=== PATIENT | male | born 1985 | race Caucasian/White ===

== ENCOUNTER 2022-07-17 15:04 | Emergency (ER) | payer SELFPAY ==
[~2022-07-17] VITALS: Ht 147 cm; Wt 72.5 kg
[2022-07-17] MEDS ORDERED: fentaNYL INJ 100 MCG/2 ML AMP IVP ONE ×2 (15:30→16:15)
[2022-07-17] MEDS ORDERED: proPOfol 200 MG/20 ML (DIPRIVAN) VIAL IV ONE (15:30)
[2022-07-17] MEDS ORDERED: NS IV 1000 ML 1,000 ML ONE (15:33)
--- NOTE | 2022-07-17 15:33 | ED Upper Extremity ---
General Chief Complaint: Upper Extremity Stated Complaint: R SHOULDER PAIN Nursing Triage Note: PT AMBULATORY TO ER WITH SON. PT INJURED R SHOULDER WHILE MOVING A FURNACE WHILE UP ON A LADDER, REPORTS FELT R SHOULDER POP, PAIN AT REST AND WITH MOVEMENT. Source: patient Exam Limitations: no limitations History of Present Illness Date Seen by Provider: Jul 17, 2022 Time Seen by Provider: 15:20 Initial Comments Patient is a 36-year-old male who presents to the emergency department today with a chief complaint of right shoulder pain. Patient was moving a furnace wh ile standing at the top of an 8 foot ladder when he lost his balance and fell off the ladder. [place] and heard a loud pop. He did not hit his head or have loss of consciousness. He states right now his shoulder hurts so bad he cannot identify any other sources of pain. He states that his right hand feels "cold". He is able to move his elbow, wrist and fingers. No chronic medical conditions. He last ate breakfast this morning, no lunch. Was ambulatory into the department. Has had previous labrum tear repair on the right shoulder and a previous chainsaw injury to the left shoulder. Denies history of christian dislocations of this shoulder. Currently rating his pain "10 out of 10". All other review of systems reviewed and negative except as stated. Onset: just prior to arrival Severity: severe Pain/Injury Location: right shoulder Method of Injury: fell Modifying Factors: Improves With Immobilization; Worse With Movement Allergies and Home Medications Allergies Coded Allergies: ketamine (Verified Allergy, Unknown, 07/17/22) ketorolac (Verified Allergy, Unknown, 07/17/22) morphine (Verified Allergy, Unknown, 07/17/22) Patient Home Medication List Home Medication List Reviewed: Yes Hydrocodone/Acetaminophen (Hydrocodone-Acetamin 5-325 mg) 5 Mg-325 Mg Tablet, 1 TAB PO Q6H PRN for PAIN-MODERATE (5-7) Prescribed by: MARYA RAO on 07/17/22 0033 Review of Systems Constitutional: see HPI EENTM: no symptoms reported Respiratory: no symptoms reported Cardiovascular: no symptoms reported Gastrointestinal: no symptoms reported Genitourinary: no symptoms reported Musculoskeletal: joint pain (right shoulder) All Other Systems Reviewed Negative Unless Noted: Yes Past Tujfocp-Qoushb-Vtplfj Hx Patient Social History Tobacco Use?: No Use of E-Cig and/or Vaping dev: No Substance use?: Yes Substance type: Marijuana Alcohol Use?: No Immunizations Up To Date First/Initial COVID19 Vaccinat: RECEIVED, UNK WHEN COVID19 Vaccine [employer] Manager: UNK Physical Exam Vital Signs Vital Signs - First Documented 07/17/22 15:08 Temp 36.8 Pulse 88 Resp 18 B/P (MAP) 157/80 (105) Pulse Ox 97 O2 Delivery Room Air Capillary Refill : Height, Weight, BMI Height: '" Weight: lbs. oz. kg; 33.00 BMI Method: General Appearance: WD/WN, moderate distress Neck: normal inspection Cardiovascular: regular rate, rhythm Respiratory: lungs clear, normal breath sounds, no respiratory distress, no accessory muscle use Back: normal inspection Shoulder: No normal ROM; asymmetry, deformity, limited ROM, pain, soft tissue tenderness Elbow/Forearm: normal inspection, non-tender, no evidence of injury, normal ROM, Right Wrist: Yes normal inspection, Yes non-tender, Yes no evidence of injury, Yes normal ROM Hand: normal inspection, non-tender, no evidence of injury, normal ROM, Right Neurologic/Tendon: normal sensation, normal motor functions Neurologic/Psychiatric: no motor/sensory deficits, alert, normal mood/affect, oriented x 3 Skin: normal color, warm/dry, other (large cavitary scar over anterior left shoulder) Procedures/Interventions Patient Education: Explained Benefits, Explained Risks, Pt. Ack. Understanding Agreement on procedure with pt: Yes Breath Sounds per Auscultation: Clear Heart Sounds per Auscultation: Regular Airway Exam: Mouth opens >2 fingers, Neck Full Range of Motion, Visulation of Uvula Sedation Adminstration Time: 15:45 Total Time spent in CS 11 min Re-examination Time: 16:00 Re-examination persistent dislocation Splinting and Joint Reduction : Pre-Proc Neuro Vasc Exam: normal Post-Proc Neuro Vasc Exam: normal Joint Reduction Site: shoulder (R) Reduction Attempts: 1 Pre-Procedure NV Exam: Yes post joint reduction film: joint not reduced Progress re-sedation required and second attempt at reduction was successful; etomidate at 1619, total length of sedation on second attempt 10 min Arm Sling: Large Immobilizers: Large Shoulder Progress/Results/Core Measures Results/Orders My Orders Orders - MARYA RAO MD Ed Iv/Invasive Line Start (07/17/22 15:23) Shoulder, Right, 3 Views (07/17/22 15:23) Propofol Injection (Diprivan Injection) (07/17/22 15:30) Fentanyl Inj (Sublimaze Injection) (07/17/22 15:30) Ns Iv 1000 Ml (Sodium Chloride 0.9%) (07/17/22 15:45) Ns Iv 1000 Ml (Sodium Chloride 0.9%) (07/17/22 15:33) Shoulder, Right, 2 Views (07/17/22 15:54) Etomidate Injection (Amidate Injection) (07/17/22 16:15) Fentanyl Inj (Sublimaze Injection) (07/17/22 16:15) Shoulder, Right, 1 View (07/17/22 16:30) Hydrocodone/Apap 10/325 Tablet (Lortab 1 (07/17/22 16:45) Medications Given in ED Current Medications Medications Dose Ordered Sig/Rick Route Start Time Stop Time Status Last Admin Dose Admin Acetaminophen/ Hydrocodone Bitart 1 ea ONCE ONCE PO 07/17/22 16:45 07/17/22 16:46 DC 07/17/22 16:48 1 EA Etomidate 22 mg ONCE ONCE IV 07/17/22 16:15 07/17/22 16:16 DC 07/17/22 16:22 22 MG Fentanyl Citrate 50 mcg ONCE ONCE IVP 07/17/22 16:15 07/17/22 16:16 DC 07/17/22 16:10 50 MCG Fentanyl Citrate 100 mcg ONCE ONCE IVP 07/17/22 15:30 07/17/22 15:31 DC 07/17/22 15:37 100 MCG Propofol 200 mg ONCE ONCE IV 07/17/22 15:30 07/17/22 15:31 DC 07/17/22 15:45 180 MG Vital Signs/I&O 07/17/22 07/17/22 15:08 15:45 Temp 36.8 Pulse 88 Resp 18 B/P (MAP) 157/80 (105) Pulse Ox 97 O2 Delivery Room Air Room Air Blood Pressure Mean: 105 Progress Progress Note : Time: 16:32 Progress Note Patient was initially sedated with [id number] and traction/counter traction to right shoulder applied. Patient seemed to have good ROM after procedure. Placed in sling and post reduction films obtained. It appeared the joint wasn't fully reduced therefore etomidate ordered at 0.3mg/kg. After administration - with comtinuous EKG monitoring/ supplemental O2 and ETCO2, again tractio n/counter traction applied. No discrete reduction palpated. I asked for some assistance from Dr Carrillo to see if he felt the joint was reduced. he thought it was - and we obtained another post reduction film. It seems to be more seated in the glenoid - the entire time we waited for repeat xrays the patient was attempting to pull the right shoulder forward, Dr Carrillo held some manual pressure over the anterior shoulder to prevent the joint from re- dislocating. Sling replaced. Patient remains NVI. asking for pain meds. Patient has never been to the this facility before. Could not access [employer]. Offered oral pain meds. will refer to Ortho. Diagnostic Imaging Diagonstic Imaging: Xray [facility] [place] [place] NAME: KAREN BELL MED REC#: [id number] PT STATUS: REG ER : 1985 PHYSICIAN: MARYA RAO MD ADMIT DATE: 07/17/22/ER Draft Date of Exam:07/17/22 SHOULDER, RIGHT, 3 VIEWS INDICATION: Shoulder pain status post traumatic injury. COMPARISON: None. FINDINGS: Multiple radiographic views of the right shoulder were obtained and show anterior inferior dislocation of the humerus in respect to the glenoid. Osseous structures appear to be intact. AC joint is maintained. Included portions of the right hemithorax are clear. No unexpected radiopaque foreign bodies are seen. IMPRESSION: 1. Right shoulder dislocation. Dictated on workstation # [id number] Dict: 07/17/22 1553 Trans: 07/17/22 1557 [id number] Interpreted by: JAMSHID SEVILLA MD Electronically signed by: Diagonstic Imaging: Xray Comments [facility] [place] [place], [place] NAME: RAYKAREN ATKINS MED REC#: [id number] PT STATUS: REG ER : 1985 PHYSICIAN: MARYA RAO MD ADMIT DATE: 07/17/22/ER Draft Date of Exam:07/17/22 SHOULDER, RIGHT, 2 VIEWS INDICATION: Status post reduction of shoulder dislocation. COMPARISON: Earlier same day. FINDINGS: Two radiographic views of the right shoulder were obtained. Y view shows persistent anterior dislocation of the humeral head in respect to the glenoid. Osseous structures remain intact on the images obtained. Included portions of the right hemithorax are clear. No unexpected radiopaque foreign bodies are seen. IMPRESSION: 1. Persistent anterior dislocation of the right shoulder. Dictated on workstation # [id number] Dict: 07/17/22 1605 Trans: 07/17/22 1611 [facility] [id number] Interpreted by: JAMSHID SEVILLA MD Electronically signed by: Diagonstic Imaging: Xray Comments [facility] [place] [place] NAME: KAREN BELL [facility] REC#: [id number] PT STATUS: REG ER : 1985 PHYSICIAN: MARYA RAO MD ADMIT DATE: 07/17/22/ER Draft Date of Exam:07/17/22 SHOULDER, RIGHT, 1 VIEW INDICATION: Status post shoulder reduction. COMPARISON: Earlier same day. FINDINGS: Single frontal radiographic view of the right shoulder was obtained. Glenohumeral joint space appears appropriate on this frontal view. No new acute osseous abnormality is seen. Included portions of the right hemithorax are clear. IMPRESSION: 1. Right glenohumeral joint space appears appropriate on this single frontal view. Correlation with orthogonal view, however, is advised. Dictated on workstation # [id number] Dict: 07/17/22 1636 Trans: 07/17/22 1638 [id number] Interpreted by: JAMSHID SEVILLA MD Electronically signed by: Departure Impression Primary Impression: Dislocation of right shoulder joint Qualified Codes: S43.004A - Unspecified dislocation of right shoulder joint, initial encounter Disposition: 01 HOME, SELF-CARE Condition: Improved Departure-Patient Inst. Decision time for Depature: 16:38 Referrals: NO,LOCAL PHYSICIAN (PCP) Primary Care Physician DHARMESH INGRAM MD Patient Instructions: Procedural Sedation, Adult ED, Shoulder Dislocation (DC) Add. Discharge Instructions: Please wear the shoulder sling until you follow up with Orthopedics. Pain medications as needed for the next [address] and take these medications. Ice pack to the right shoulder for swelling and pain. You can supplement the pain medication with Ibuprofen 3 pills every 6 hours as needed with food. Call Dr Ingram's office (Ortho surgery) for a follow up appointment in 1 week. Scripts Hydrocodone/Acetaminophen (Hydrocodone-Acetamin 5-325 mg) 5 Mg-325 Mg Tablet 1 TAB PO Q6H PRN for PAIN-MODERATE (5-7), #8 TAB Prov: MARYA RAO MD 07/17/22 Copy Copies To 1: DHARMESH INGRAM MD, KATHRYN M MD Jul 17, 2022 15:33
[2022-07-17] MEDS ORDERED: NS IV 1000 ML 1,000 ML IV SCH (15:45)
--- NOTE | 2022-07-17 15:58 | Diagnostic Imaging Report ---
INDICATION: Shoulder pain status post traumatic injury. COMPARISON: None. FINDINGS: Multiple radiographic views of the right shoulder were obtained and show anterior inferior dislocation of the humerus in respect to the glenoid. Osseous structures appear to be intact. AC joint is maintained. Included portions of the right hemithorax are clear. No unexpected radiopaque foreign bodies are seen. IMPRESSION: 1. Right shoulder dislocation. Dictated by: Dictated on workstation # [id number]
--- NOTE | 2022-07-17 16:12 | Diagnostic Imaging Report ---
INDICATION: Status post reduction of shoulder dislocation. COMPARISON: Earlier same day. FINDINGS: Two radiographic views of the right shoulder were obtained. Y view shows persistent anterior dislocation of the humeral head in respect to the glenoid. Osseous structures remain intact on the images obtained. Included portions of the right hemithorax are clear. No unexpected radiopaque foreign bodies are seen. IMPRESSION: 1. Persistent anterior dislocation of the right shoulder. Dictated by: Dictated on workstation # [id number]
[2022-07-17] MEDS ORDERED: ETOMIDATE IV SOLN 20 MG/10 ML VIAL IV ONE (16:15)
--- NOTE | 2022-07-17 16:39 | Diagnostic Imaging Report ---
INDICATION: Status post shoulder reduction. COMPARISON: Earlier same day. FINDINGS: Single frontal radiographic view of the right shoulder was obtained. Glenohumeral joint space appears appropriate on this frontal view. No new acute osseous abnormality is seen. Included portions of the right hemithorax are clear. IMPRESSION: 1. Right glenohumeral joint space appears appropriate on this single frontal view. Correlation with orthogonal view, however, is advised. Dictated by: Dictated on workstation # [id number]
[2022-07-17] MEDS ORDERED: ACHD5005 PO ×2 (16:42→17:55)
[2022-07-17 16:56] VITALS: BP 130/87
== END 2022-07-17 16:56 | disposition home or self-care (01) ==
LOC: ER 15:06
DX: S43.004A Unspecified dislocation of right shoulder joint, initial encounter (principal); Z98.890 Other specified postprocedural states; Z28.310 Unvaccinated for COVID-19; W11.XXXA Fall on and from ladder, initial encounter
CPT/HCPCS: 73020; 73030; 93041